=== PATIENT | male | born 1945 | race African-American/Black ===

== ENCOUNTER 2016-12-28 11:21 | Inpatient (IN) | payer MEDICARE, OTHER ==
[2016-12-28] VITALS (8 sets, daily range): BP systolic 69–133; BP diastolic 28–105
[~2016-12-28] VITALS: Ht 182.9 cm; Wt 72.6 kg
[2016-12-28] MEDS ORDERED: NS 1000ml 2,200 ML IVLG ONE (11:30)
--- NOTE | 2016-12-28 11:30 | Emergency Room Report ---
History of Present Illness General Chief Complaint: Dizziness Source: Patient, EMS Present Illness HPI Patient was brought in by paramedics Appears extremely ill Tachypneic Patient was apparently found down With questionable severe dizziness and lightheadedness Patient was able to tell me that he was feeling lightheaded prior to the arrival of the paramedics However with multiple attempts a further history Patient is essentially found to be tachypneic And severely ill with minimal ability to provide information He does have a palpable pacemaker in the left upper chest Is not able to provide any information regarding the onset Regarding medications History of present illness remains significantly limited Allergies: Coded Allergies: No Known Allergies (Unverified , 12/28/16) Patient History Limited by: medical condition Past Medical History: see triage record Pertinent Family History: none Reviewed Nursing Documentation: PMH: Agreed, PSxH: Agreed Nursing Documentation-PMH Hx Cardiac Problems: Yes - a-fib,chf Hx Hypertension: Yes Hx Pacemaker: No Hx Asthma: No Hx COPD: Yes Hx Diabetes: No Hx Cancer: No Hx Gastrointestinal Problems: No Hx Dialysis: No History Of Psychiatric Problem: No Hx Neurological Problems: No Hx Cerebrovascular Accident: No Hx Seizures: No Review of Systems All Other Systems: limited - Other than the ones mentioned in the history of present illness all others are reviewed however they do stay limited due to the patient's mental status Physical Exam Vital Signs Date Time Temp Pulse Resp B/P Pulse Ox O2 Delivery O2 Flow Rate FiO2 12/28/16 11:09 98.1 86 16 130/70 98 Room Air Sp02 EP Interpretation: reviewed, normal General Appearance: severe distress - Patient appears tachypneic and diaphoretic Head: normocephalic, atraumatic Eyes: bilateral eye EOMI, bilateral eye PERRL ENT: hearing grossly normal, normal pharynx, TMs + canals normal, uvula midline Neck: full range of motion, supple, no meningismus, no bony tend Respiratory: no retraction, no accessory muscle use, other - Rhonchi in both upper lobes, tachypneic Cardiovascular #1: normal peripheral pulses, regular rate, rhythm, no gallop Gastrointestinal: normal bowel sounds, non tender, soft, no mass, no organomegaly, non-distended, no guarding, no hernia, no pulsatile mass, no rebound Genitourinary: no CVA tenderness Musculoskeletal: other - Patient not following all commands fully at this time however there is no obvious signs of focal deficit, Neurologic: oriented x3, responsive, student services dean III-XII nml as tested, motor strength/ tone normal, sensory intact Psychiatric: mood/affect normal Skin: warm/dry, palpation normal, other - Edema in both lower extremities Lymphatic: normal inspection, no adenopathy Procedures Critical Care Time Critical Care Time 40 minutes for initial critical presentation Hypotensive episodes requiring multiple exams Not including any procedural time Medical Decision Making Diagnostic Impression: Primary Impression: Syncope Additional Impressions: Viral syndrome Dehydration ER Course Patient is a fairly complex patient with multiple differential to consideration including but not limited to cardiac cardiopulmonary and vascular emergencies Patient has done significantly better throughout his stay Blood pressure at this time is improving Patient oxygenation also improved At this be to several family members including Mrs. Shelton Patient does not have much other medication other than low dose oral medication for diabetes However he does have a cardiac pacemaker which is in place on exam as well Patient required further inpatient care and admitted in improved yet still critical condition Labs Test 12/28/16 11:30 12/28/16 11:40 12/28/16 12:30 12/28/16 12:44 White Blood Count 13.4 K/UL (4.8-10.8) Red Blood Count 5.37 M/UL (4.70-6.10) Hemoglobin 13.9 G/DL (14.2-18.0) Hematocrit 45.2 % (42.0-52.0) Mean Corpuscular Volume 84 FL (80-99) Mean Corpuscular Hemoglobin 25.9 PG (27.0-31.0) Mean Corpuscular Hemoglobin Concent 30.8 G/DL (32.0-36.0) Red Cell Distribution Width 14.8 % (11.6-14.8) Platelet Count 164 K/UL (150-450) Mean Platelet Volume 9.0 FL (6.5-10.1) Neutrophils (%) (Auto) 53.4 % (45.0-75.0) Lymphocytes (%) (Auto) 37.4 % (20.0-45.0) Monocytes (%) (Auto) 7.3 % (1.0-10.0) Eosinophils (%) (Auto) 1.5 % (0.0-3.0) Basophils (%) (Auto) 0.4 % (0.0-2.0) Prothrombin Time 11.3 SEC (9.30-11.50) Prothromb Time International Ratio 1.1 (0.9-1.1) Activated Partial Thromboplast Time 24 SEC (23-33) Urine Color Yellow Urine Appearance Clear Urine pH 6 (4.5-8.0) Urine Specific [place] 1.015 (1.005-1.035) Urine Protein 2+ (NEGATIVE) Urine Glucose (UA) Negative (NEGATIVE) Urine Ketones Negative (NEGATIVE) Urine Occult Blood Negative (NEGATIVE) Urine Nitrite Negative (NEGATIVE) Urine Bilirubin Negative (NEGATIVE) Urine Urobilinogen Normal MG/DL (0.0-1.0) Urine Leukocyte Esterase Negative (NEGATIVE) Urine RBC 0-2 /HPF (0 - 0) Urine WBC 0-2 /HPF (0 - 0) Urine Squamous Epithelial Cells Occasional /LPF Urine Bacteria Occasional /HPF (NONE) Sodium Level 142 mEQ/L (135-145) Potassium Level 4.0 mEQ/L (3.4-4.9) Chloride Level 98 mEQ/L (98-107) Carbon Dioxide Level 26 mEQ/L (20-30) Anion Gap 18 (5-15) Blood Urea Nitrogen 19 mg/dL (7-23) Creatinine 1.7 mg/dL (0.7-1.2) Estimat Glomerular Filtration Rate 48.5 mL/min (>60) Glucose Level 224 mg/dL (74-106) Calcium Level 9.3 mg/dL (8.6-10.2) Phosphorus Level 3.8 mg/dL (2.5-4.8) Magnesium Level 2.1 mg/dL (1.7-2.5) Total Bilirubin 0.5 mg/dL (0.0-1.2) Aspartate Amino Transf (AST/SGOT) 24 U/L (5-40) Alanine Aminotransferase (ALT/SGPT) 27 U/L (3-41) Alkaline Phosphatase 63 U/L (40-129) Total Creatine Kinase 161 U/L (38-174) Creatine Kinase MB 3.3 ng/mL (< 6.7) Creatine Kinase MB Relative Index 2.0 Troponin I < 0.30 ng/mL (<=0.30) Pro-B-Type Natriuretic Peptide 49 pg/mL (0-125) Total Protein 6.8 g/dL (6.6-8.7) Albumin 4.0 g/dL (3.5-5.2) Globulin 2.8 g/dL Albumin/Globulin Ratio 1.4 (1.0-2.7) Lipase 31 U/L (< 60) Lactic Acid Level 3.80 mmol/L (0.66-2.22) Arterial Blood pH 7.371 (7.350-7.450) Arterial Blood Partial Pressure CO2 38.8 mmHg (35.0-45.0) Arterial Blood Partial Pressure O2 165.0 mmHg (75.0-100.0) Arterial Blood HCO3 22.0 mmol/L (22.0-26.0) Arterial Blood Oxygen Saturation 98.0 % (92.0-98.0) Arterial Blood Base Excess -2.9 Marquez Test Positive EKG Diagnostic Results Rate: normal Rhythm: NSR, other ST Segments: other - Bifascicular block, nonspecific ST and T-wave changes, abnormal EKG Rhythm Strip Diag. Results EP Interpretation: yes Rate: 66 Rhythm: NSR, no PVC's, no ectopy, other - rbbb Chest X-Ray Diagnostic Results EP Interpretation: Yes Findings: no consolidation, no effusion, no pneumothorax Number of Views: 1 Last Vital Signs Date Time Temp Pulse Resp B/P Pulse Ox O2 Delivery O2 Flow Rate FiO2 12/28/16 11:09 98.1 86 16 130/70 98 Room Air Status: improved Disposition: ADMITTED INPATIENT Condition: Serious DOMENIC SHEN D.O. Dec 28, 2016 11:30
[2016-12-28 11:38] LABS: APPEARANCE,URINE CLEAR; KETONES,URINE NEGATIVE (NEGATIVE); LEUKOCYTE ESTERASE ,URINE NEGATIVE (NEGATIVE); NITRITE,URINE NEGATIVE (NEGATIVE); PH,URINE 6 (4.5-8.0); PROTEIN,URINE 2+ (NEGATIVE); UROBILINOGEN,URINE NORMAL MG/DL (0.0-1.0)
[2016-12-28 11:39] LABS: BASOPHILS % (AUTO) 0.4 % (0.0-2.0); EOSINOPHILS % (AUTO) 1.5 % (0.0-3.0); LYMPHOCYTES % (AUTO) 37.4 % (20.0-45.0); MEAN CORPUSCULAR HEMOGLOBIN 25.9 PG (27.0-31.0); MEAN CORPUSCULAR HGB CONC 30.8 G/DL (32.0-36.0); MEAN CORPUSCULAR VOLUME 84 FL (80-99); MONOCYTES % (AUTO) 7.3 % (1.0-10.0); NEUTROPHILS % (AUTO) 53.4 % (45.0-75.0); PLATELET COUNT 164 K/UL (150-450); RED BLOOD COUNT 5.37 M/UL (4.70-6.10); RED CELL DISTRIBUTION WIDTH 14.8 % (11.6-14.8); WHITE BLOOD COUNT 13.4 K/UL (4.8-10.8)
[2016-12-28 11:46] LABS: INR 1.1 (0.9-1.1); PROTHROMBIN TIME 11.3 SEC (9.30-11.50)
[2016-12-28 11:52] LABS: TROPONIN I < 0.30 ng/mL (<=0.30)
[2016-12-28 11:55] LABS: ALBUMIN/GLOBULIN RATIO 1.4 (1.0-2.7); CALCIUM 9.3 mg/dL (8.6-10.2); CREATININE 1.7 mg/dL (0.7-1.2); GLOMERULAR FILTRATION RATE 48.5 mL/min (>60); MAGNESIUM 2.1 mg/dL (1.7-2.5); PHOSPHORUS 3.8 mg/dL (2.5-4.8); TOTAL PROTEIN 6.8 g/dL (6.6-8.7)
[2016-12-28 11:56] LABS: BACTERIA,URINE OCCASIONAL /HPF; RBC,URINE 0-2 /HPF (0 - 0); SQUAMOUS EPITHELIAL CELL,UR OCCASIONAL /LPF (NONE/OCC); WBC,URINE 0-2 /HPF (0 - 0)
[2016-12-28 11:59] LABS: REFLEX LACTIC ACID YES OR NO YES
[2016-12-28 12:06] LABS: CKMB 3.3 ng/mL (< 6.7)
[2016-12-28] MEDS ORDERED: Oseltamivir 75mg cap ORAL ONE (12:30)
--- NOTE | 2016-12-28 12:30 | Diagnostic Imaging Report ---
Clinical history: Cough. Technique: Portable AP chest radiograph was obtained. Comparison: None Findings: Lung volumes are low with probable basilar atelectasis and vascular crowding. Nonspecific atelectatic device projects over the left chest. There is no pneumonia or pulmonary edema. There is no pleural effusion or pneumothorax. The cardiac and mediastinal silhouettes are normal in appearance. The bony thorax is unremarkable. Impression: Low lung volumes with mild basilar atelectasis and vascular crowding.
[2016-12-28 12:44] LABS: ABG BASE EXCESS -2.9; ABG PCO2 38.8 mmHg (35.0-45.0)
[2016-12-28 12:45] LABS: ABG ALLEN TEST POSITIVE
[2016-12-28] MEDS ORDERED: DIOVAN40 MG ORAL (14:11)
[2016-12-28] MEDS ORDERED: SINGULAIR10 MG ORAL (14:11)
[2016-12-28] MEDS ORDERED: ADVAIR 100-501 EACH INH (14:11)
[2016-12-28] MEDS ORDERED: LISINOPRIL5 MG ORAL (14:11)
[2016-12-28] MEDS ORDERED: Advair 100/50 Inhaler - 14 dose INH SCH (16:30)
[2016-12-28] MEDS ORDERED: DuoNeb 0.5-3(2.5)mg/3ml neb HHN PRN (16:30)
[2016-12-28] MEDS ORDERED: Milk of Magnesia 30ml Ud ORAL PRN (16:30)
[2016-12-28] MEDS: cefTRIAXone 1gm/D5W 55ml IVPB SCH ×2 (17:42)
[2016-12-28] MEDS: Solu-MEDROL 40mg Inj IVP SCH (17:43)
[2016-12-28] MEDS ORDERED: Heparin 5000 units/ml inj SUBQ SCH (21:00)
[2016-12-28] MEDS: Advair 100/50 Inhaler - 14 dose INH SCH (22:25)
[2016-12-29] VITALS: BP 126/73
[2016-12-29] MEDS: Solu-MEDROL 40mg Inj IVP SCH ×2 (00:14→06:38)
--- NOTE | 2016-12-29 03:19 | Consultation ---
DATE OF CONSULTATION: 12/28/2016 CARDIOLOGY CONSULTATION REQUESTING PHYSICIAN: Maxwell Sarah M.D. REASON FOR CONSULTATION: Syncope in the setting of permanent pacemaker. HISTORY OF PRESENT ILLNESS: This 71-year-old male was brought into the emergency room by paramedics after being found down. He notes dizziness and lightheadedness prior to passing out. He is not able to give much more reliable history at this time and is quite lethargic. PAST MEDICAL HISTORY: Includes permanent pacemaker, hypertension, atrial fibrillation, and congestive heart failure. MEDICATIONS: Reviewed and reconciled, although definitive list from home not available. ALLERGIES: None known. SOCIAL HISTORY: Denies smoking or alcohol use. REVIEW OF SYSTEMS: At this time, cannot be reliably obtained from the patient due to his condition. PHYSICAL EXAMINATION: GENERAL: He is in moderate respiratory distress. He is diaphoretic. VITAL SIGNS: In the emergency room, afebrile, blood pressure 130/70, pulse 86, respirations 16, and room air oxygen saturation 98%. HEENT: The oropharynx reveals dry mucous membranes. Pupils are equal, round, and reactive to light and accommodation. LUNGS: Bilateral breath sounds. Scattered rhonchi. Accessory muscle use. HEART: Regular rhythm and rate. Normal S1 and S2. No murmur. ABDOMEN: Soft and nontender. EXTREMITIES: Without edema. Capillary refill is adequate. LABORATORY AND DIAGNOSTIC DATA: EKG reveals sinus rhythm with right bundle and left anterior and superior hemiblocks. White count 13.4 and hemoglobin 13.9. INR 1.1. Magnesium 2.1. Sodium 142, potassium 4.0, bicarbonate 26, BUN 19, creatinine 1.7, and glucose 224. Chest x-ray with atelectasis. IMPRESSION: 1. Probable sepsis. 2. Probable pneumonia. 3. Acute respiratory insufficiency. 4. 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 5. Hypovolemic, syncope suspected. 6. Acute renal failure due to hypovolemia and acute tubular necrosis. PLAN: 1. Cardiac monitoring. 2. Volume resuscitation. 3. Panculture. 4. Broad-spectrum antibiotics. 5. Bronchodilators. 6. DVT prophylaxis. 7. We will continue efforts to expand database. 8. Further recommendations will follow. Noel Norris M.D. DR: Melanie JOB#: [id number] CC:
[2016-12-29 04:00] VITALS: BP 125/80
[2016-12-29 05:24] LABS: MEAN CORPUSCULAR HEMOGLOBIN 26.6 PG (27.0-31.0); MEAN CORPUSCULAR HGB CONC 32.2 G/DL (32.0-36.0); MEAN CORPUSCULAR VOLUME 83 FL (80-99); MEAN PLATELET VOLUME 8.7 FL (6.5-10.1); PLATELET COUNT 114 K/UL (150-450); RED BLOOD COUNT 5.03 M/UL (4.70-6.10); RED CELL DISTRIBUTION WIDTH 14.6 % (11.6-14.8); WHITE BLOOD COUNT 9.2 K/UL (4.8-10.8)
[2016-12-29 06:31] LABS: TROPONIN I 1.43 ng/mL (<=0.30)
[2016-12-29 06:59] LABS: ALANINE AMINOTRANSFERASE 35 U/L (3-41); ALBUMIN/GLOBULIN RATIO 1.2 (1.0-2.7); ANION GAP 16 (5-15); ASPARTATE AMINO TRANSFERASE 30 U/L (5-40); CALCIUM 8.8 mg/dL (8.6-10.2); CARBON DIOXIDE 23 mEQ/L (20-30); CHLORIDE 101 mEQ/L (98-107); CREATININE 1.1 mg/dL (0.7-1.2); GLOMERULAR FILTRATION RATE > 60 mL/min (>60); HEMOLYSIS 6; POTASSIUM 4.8 mEQ/L (3.4-4.9); SODIUM 140 mEQ/L (135-145); TOTAL PROTEIN 6.4 g/dL (6.6-8.7)
[2016-12-29 07:01] LABS: THYROID STIMULATING HORMONE 0.219 uIU/mL (0.300-4.500)
[2016-12-29 08:00] VITALS: BP 151/89
[2016-12-29] MEDS: Nitroglycerin 2% oint pkt TOPIC SCH ×3 (08:07→18:17)
[2016-12-29] MEDS ORDERED: Enoxaparin 80mg Inj SUBQ SCH (09:00)
[2016-12-29] MEDS: Aspirin Baby 81mg ORAL SCH (09:32)
[2016-12-29] MEDS: Advair 100/50 Inhaler - 14 dose INH SCH ×2 (09:32→21:00)
[2016-12-29] MEDS: Losartan 25mg tab ORAL SCH (09:33)
[2016-12-29] MEDS: Montelukast 10mg tablet ORAL SCH (09:35)
[2016-12-29 09:37] LABS: CHOLESTEROL/HDL RATIO 3.7 (3.3-4.4)
[2016-12-29 10:31] LABS: BAND NEUTROPHILS % (MANUAL) 0 % (0-8); BASOPHILS % (MANUAL) 0 % (0-2); EOSINOPHILS % (MANUAL) 0 % (0-3); LYMPHOCYTES % (MANUAL) 5 % (20-45); NEUTROPHILS % (MANUAL) 94 % (45-75); PLATELET ESTIMATE DECREASED; TOTAL CELLS COUNTED 100
[2016-12-29 10:32] LABS: PLATELET MORPHOLOGY NORMAL
[2016-12-29 12:00] VITALS: BP 117/77
--- NOTE | 2016-12-29 12:07 | Cardiology Report ---
APPROVED REPORT EXAM: Two-dimensional and M-mode echocardiogram with Doppler and color Doppler. INDICATION Syncope M-Mode DIMENSIONS IVSd1.3 (0.7-1.1cm)Left Atrium (MM)4.0 (1.6-4.0cm) LVDd4.0 (3.5-5.6cm)Aortic Root2.7 (2.0-3.7cm) PWd1.2 (0.7-1.1cm)Aortic Cusp Exc.2.0 (1.5-2.0cm) IVSs2.0 cm LVDs1.8 (2.5-4.0cm) PWs1.7 cm Normal left ventricular chamber size, systolic function and wall motion. Left ventricular ejection fraction estimated to be 65-70 %. Mild left ventricular hypertrophy. No evidence of pericardial fat or effusion. Moderate right atrial enlargement. Mild right ventricular enlargement. Left atrial chamber size is within normal limits. Mild focal aortic valve sclerosis with adequate cusp excursion. Mildly thickened mitral valve leaflets with normal excursion. Mild mitral annulus and aortic root calcification. Pulmonic valve not well visualized. Normal tricuspid valve structure. IVC dilated at 2.5 cm with physiologic collapse. A color flow and spectral Doppler study was performed and revealed: No aortic regurgitation. Trace mitral regurgitation. Mitral diastolic velocities suggest reduced left ventricular relaxation (Grade I). Mild tricuspid regurgitation. Tricuspid systolic velocities suggests peak right ventricular systolic pressure of 60 mmHg, consistent with severe pulmonary hypertension. No pulmonic regurgitation present.
--- NOTE | 2016-12-29 12:24 | Cardiology Report ---
APPROVED REPORT EKG Measurement Heart [id number] Sinus rhythm with sinus arrhythmia with occasional premature ventricular complexes Right bundle branch block Left anterior fascicular block Bifascicular block Abnormal ECG
[2016-12-29 13:09] LABS: TROPONIN I 0.96 ng/mL (<=0.30)
[2016-12-29] MEDS ORDERED: Tubing IV Secondary IV ONE (14:22)
[2016-12-29 16:00] VITALS: BP 115/69
--- NOTE | 2016-12-29 16:02 | Diagnostic Imaging Report ---
Indications: SOB Technique: IV administration 4.9 mCi 99m technetium macroaggregated albumin. Images obtained over the lungs in multiple projections. Previously, patient inhaled mCi aerosolized 99M technetium DTPA. Images obtained over the lungs in multiple projections Comparison: Chest radiographs dated 12/28/2016 Findings: Tracer activity in the right lung is overall slightly fainter on the perfusion than on the aerosol images, but no focal segmental or subsegmental perfusion defects are demonstrated; suspect this is artifactual. No definite aerosol/perfusion mismatch is evident. Impression: Findings are deemed low probability for pulmonary embolus
[2016-12-29] MEDS ORDERED: Promethazine/Codeine 5ml UD ORAL PRN (17:30)
[2016-12-29] MEDS: cefTRIAXone 1gm/D5W 55ml IVPB SCH ×2 (18:17)
--- NOTE | 2016-12-29 19:09 | History and Physical Report ---
DATE OF ADMISSION: 12/28/2016 CHIEF COMPLAINT: Syncope. HISTORY OF PRESENT ILLNESS: The patient is a 71-year-old male with multiple medical problems, who presented with a complaint of a syncopal episode. According to the patient, he was well. He woke up in the morning of admission, walked up some stairs. He noted slight amount of chest tightness and then had a syncopal episode. Walking down to his car, he also felt unsteady, weak, and dizzy and passed out again. He has been having diarrhea for the last two days, approximately five times a day and has had "flu" for two weeks with productive cough and sore throat. On evaluation in the emergency room, the patient was short of breath. He was temporarily placed on BiPAP. He is now off BiPAP and is more comfortable. He does admit to recent episodes of exertional chest pain. He states he has all his doctors at the [place] who apparently did a stress test that was unremarkable. PAST MEDICAL HISTORY: Significant for history of asthma, hypertension, hyperlipidemia, and history of gout. PAST SURGICAL HISTORY: Some type of heart monitor. CURRENT MEDICATIONS: Reconciled and reviewed. ALLERGIES: None. FAMILY HISTORY: Significant for diabetes. SOCIAL HISTORY: Negative for tobacco, ethanol, or drugs. REVIEW OF SYSTEMS: General: No fever or chills. Positive malaise and weakness. HEENT: No headaches or visual changes. Cardiopulmonary: Positive chest pains. Positive shortness of breath. Positive cough. Gastrointestinal: No nausea or vomiting. Genitourinary: No urgency or frequency. Musculoskeletal: No joint pain or swelling. Neurological: No evidence of seizures. PHYSICAL EXAMINATION: VITAL SIGNS: Temperature 98 degrees, blood pressure 126/73, pulse of 88, and respirations 20. GENERAL: The patient is in no apparent stress. HEART: Regular rate and rhythm. LUNGS: Clear anteriorly. ABDOMEN: Soft, nontender, and nondistended. EXTREMITIES: Without clubbing or cyanosis. There is trace pitting edema noted. LABORATORY DATA: Sodium 142, potassium 4, and creatinine was 1.7. White count 13, hemoglobin 13, hematocrit 45, and platelets of 164,000. Urine was clear. EKG showed right bundle-branch block and left anterior fascicular block. There are no comparisons. ASSESSMENT: This is a pleasant male who complains of syncopal episode. 1. Syncope. 2. Acute myocardial infarction. 3. Asthma. 4. Hypertension. 5. Hyperlipidemia. 6. History of gout. PLAN: 1. Antiplatelet therapy and Lovenox. 2. Topical nitrates. 3. Respiratory treatments as needed. 4. Cardiology consultation. 5. Antibiotics for bronchitis. 6. The patient will likely need to be transferred for cardiac catheterization with followup echo. 7. The patient's status is guarded. Maxwell Sraah M.D. DR: ALEXANDRA JOB#: [id number] CC:
[2016-12-29 20:00] VITALS: BP 116/70
[2016-12-29] MEDS: Enoxaparin 80mg Inj SUBQ SCH (21:01)
[2016-12-30] VITALS: BP 121/77
[2016-12-30] MEDS: Nitroglycerin 2% oint pkt TOPIC SCH ×4 (00:32→17:29)
[2016-12-30] MEDS: Metoprolol 25mg tab ORAL SCH ×2 (01:11→08:52)
--- NOTE | 2016-12-30 02:49 | Progress Note ---
DATE: 12/29/2016 CARDIOLOGY PROGRESS NOTE SUBJECTIVE: The patient has no chest pain. He is still short of breath. Monitored rhythm is sinus with bundle-branch block. His troponin levels have been elevated. OBJECTIVE: VITAL SIGNS: Blood pressure 115/69, pulse 88, respirations 18. NECK: Supple. LUNGS: With diminished breath sounds. Few rales. HEART: Regular rhythm and rate. Normal S1, increased splitting S2, a 1/6 systolic apical murmur. ABDOMEN: Soft. EXTREMITIES: Trace edema. DIAGNOSTIC DATA: Echocardiogram with normal ejection fraction and pulmonary hypertension. PA systolic pressure of 60, mild tricuspid regurgitation. VQ scan is normal. LDL cholesterol was 150. Troponin peaked at 1.43. IMPRESSION: 1. Acute myocardial infarction. 2. Hyperlipidemia. 3. Permanent pacemaker. 4. Bifascicular block. 5. Hypertensive heart disease. 6. Acute diastolic congestive heart failure. 7. Severe pulmonary hypertension. PLAN: 1. Add beta-pj. 2. Continue anti-platelet therapy. 3. DVT prophylaxis. 4. Statin drug. 5. Anti failure regimen and possibly diuresis. 6. Pacemaker interrogation. 7. Ischemia workup. 8. We will follow. 9. I am attempting to obtain outside records. Noel Norris M.D. DR: DAE JOB#: [id number] CC:
[2016-12-30 04:00] VITALS: BP 137/77
[2016-12-30 05:50] LABS: BASOPHILS % (AUTO) 0.2 % (0.0-2.0); LYMPHOCYTES % (AUTO) 16.3 % (20.0-45.0); MEAN CORPUSCULAR HEMOGLOBIN 26.8 PG (27.0-31.0); MEAN CORPUSCULAR HGB CONC 31.6 G/DL (32.0-36.0); MEAN CORPUSCULAR VOLUME 85 FL (80-99); MEAN PLATELET VOLUME 8.6 FL (6.5-10.1); MONOCYTES % (AUTO) 6.9 % (1.0-10.0); NEUTROPHILS % (AUTO) 76.6 % (45.0-75.0); PLATELET COUNT 106 K/UL (150-450); RED BLOOD COUNT 4.61 M/UL (4.70-6.10); RED CELL DISTRIBUTION WIDTH 14.3 % (11.6-14.8); WHITE BLOOD COUNT 13.9 K/UL (4.8-10.8)
[2016-12-30 06:23] LABS: ALANINE AMINOTRANSFERASE 25 U/L (3-41); ALBUMIN/GLOBULIN RATIO 1.2 (1.0-2.7); ANION GAP 13 (5-15); ASPARTATE AMINO TRANSFERASE 24 U/L (5-40); CALCIUM 8.8 mg/dL (8.6-10.2); CARBON DIOXIDE 23 mEQ/L (20-30); CHLORIDE 104 mEQ/L (98-107); CREATININE 1.1 mg/dL (0.7-1.2); GLOMERULAR FILTRATION RATE > 60 mL/min (>60); HEMOLYSIS 6; POTASSIUM 4.4 mEQ/L (3.4-4.9); SODIUM 140 mEQ/L (135-145); TOTAL PROTEIN 5.7 g/dL (6.6-8.7)
[2016-12-30 06:56] LABS: TROPONIN I 1.01 ng/mL (<=0.30)
--- NOTE | 2016-12-30 07:07 | General Progress Note ---
Assessment/Plan Problem List: (1) Acute SC ICD Codes: I21.3 - ST elevation (STEMI) myocardial infarction of unspecified site SNOMED: 95122783 (2) DVT (deep venous thrombosis) ICD Codes: I82.409 - Acute embolism and thrombosis of unspecified deep veins of unspecified lower extremity SNOMED: 201009609 (3) Syncope ICD Codes: R55 - Syncope and collapse SNOMED: 780485043 (4) Viral syndrome ICD Codes: B34.9 - Viral infection, unspecified SNOMED: 27479745 Status: stable Assessment/Plan cont antiplt rx and lovenox topical nitrates b-blockade abx resp care o2 possible transfer for cath Subjective ROS Limited/Unobtainable: No Constitutional: Reports: malaise, weakness HEENT: Reports: no symptoms Cardiovascular: Reports: chest pain Respiratory: Reports: shortness of breath Gastrointestinal/Abdominal: Reports: no symptoms Genitourinary: Reports: no symptoms Neurologic/Psychiatric: Reports: no symptoms Endocrine: Reports: no symptoms Hematologic/Lymphatic: Reports: no symptoms Allergies: Coded Allergies: No Known Allergies (Unverified , 12/28/16) All Systems: reviewed and negative except above Subjective intermittent chest pain o2 sats better. less sob. venous duplex positive for acute dvt. on lovenox bid. . Objective Last 24 Hour Vital Signs Date Time Temp Pulse Resp B/P Pulse Ox O2 Delivery O2 Flow Rate FiO2 12/30/16 05:58 128/45 12/30/16 04:00 98.0 55 20 137/77 97 Room Air 12/30/16 03:50 49 12/30/16 01:11 69 139/90 12/30/16 00:32 121/77 12/30/16 00:11 64 12/30/16 00:00 98.0 56 20 121/77 94 Room Air 12/29/16 21:30 80 20 97 Room Air 3.0 21 12/29/16 21:30 77 20 95 Room Air 21 12/29/16 20:00 84 12/29/16 20:00 98.2 80 18 116/70 95 Room Air 18 12/29/16 19:30 Nasal Cannula 3.0 32 12/29/16 19:30 80 20 Nasal Cannula 3.0 32 12/29/16 19:30 98 Nasal Cannula 3.0 32 12/29/16 18:17 115/69 12/29/16 16:00 88 12/29/16 16:00 97.3 80 18 115/69 95 Room Air 18 12/29/16 12:23 145/91 12/29/16 12:00 97.5 83 20 117/77 93 Nasal Cannula 3.0 12/29/16 09:47 78 18 97 Nasal Cannula 3.0 12/29/16 09:46 78 18 97 Nasal Cannula 3.0 12/29/16 09:46 Nasal Cannula 3.0 12/29/16 09:46 97 Nasal Cannula 3.0 12/29/16 09:45 78 18 Nasal Cannula 3.0 12/29/16 09:33 145/91 12/29/16 09:00 84 85 91 12/29/16 08:07 125/80 12/29/16 08:00 94 12/29/16 08:00 97.7 94 20 151/89 93 Nasal Cannula 3.0 Intake and Output 12/29/16 12/30/16 19:00 07:00 Intake Total 880 ml 975 ml Output Total 300 ml 1650 ml Balance 580 ml -675 ml Intake Oral 300 ml IV Total 880 ml 675 ml Output Urine Total 300 ml 1650 ml # Bowel Movements 1 Laboratory Tests 12/29/16 07:50: Triglycerides Level 70, Cholesterol Level 225H, LDL Cholesterol 150H, HDL Cholesterol 61H, Cholesterol/HDL Ratio 3.7 12/29/16 12:15: Troponin I 0.96*H 12/30/16 04:10: Troponin I 1.01*H, White Blood Count 13.9#H, Red Blood Count 4.61L, Hemoglobin 12.3L, Hematocrit 39.0L, Mean Corpuscular Volume 85, Mean Corpuscular Hemoglobin 26.8L, Mean Corpuscular Hemoglobin Concent 31.6L, Red Cell Distribution Width 14.3, Platelet Count 106L, Mean Platelet Volume 8.6, Neutrophils (%) (Auto) 76.6H, Lymphocytes (%) (Auto) 16.3L, Monocytes (%) (Auto ) 6.9, Eosinophils (%) (Auto) 0.0, Basophils (%) (Auto) 0.2, Sodium Level 140, Potassium Level 4.4, Chloride Level 104, Carbon Dioxide Level 23, Anion Gap 13, Blood Urea Nitrogen 14, Creatinine 1.1, Estimat Glomerular Filtration Rate > 60 , Glucose Level 147H, Hemoglobin A1c 6.3H, Calcium Level 8.8, Total Bilirubin 0.3, Aspartate Amino Transf (AST/SGOT) 24, Alanine Aminotransferase (ALT/SGPT) 25, Alkaline Phosphatase 57, Pro-B-Type Natriuretic Peptide 2191H, Total Protein 5.7L, Albumin 3.2L, Globulin 2.5, Albumin/Globulin Ratio 1.2 Height (Feet): 6 Height (Inches): 0.00 Weight (Pounds): 160 General Appearance: WD/WN, alert Neck: supple Cardiovascular: regular rhythm Respiratory/Chest: lungs clear Abdomen: normal bowel sounds, non tender, soft, no organomegaly, no mass Edema: no edema noted Arm (L), no edema noted Arm (R), no edema noted Leg (L), no edema noted Leg (R), no edema noted Pedal (L), no edema noted Pedal (R), no edema noted Generalized SHELLEY MIGUEL Dec 30, 2016 07:07
--- NOTE | 2016-12-30 07:56 | Pulmonology Progress Note ---
Assessment/Plan Assessment/Plan 1. Syncope. 2. Acute myocardial infarction. 3. Asthma. 4. Hypertension. 5. Hyperlipidemia. 6. History of gout. 7. minimal atelectasis PLAN care noted on high dose Lovenox no change cards clearance VQ low prob will follow up for change respiratory care as outlined impression, plan, and exam edited and reviewed in detail care discussed with RN Subjective Allergies: Coded Allergies: No Known Allergies (Unverified , 12/28/16) Subjective care noted no distress at present, no need for oxygen Objective Last 24 Hour Vital Signs Date Time Temp Pulse Resp B/P Pulse Ox O2 Delivery O2 Flow Rate FiO2 12/30/16 07:41 55 20 Room Air 12/30/16 07:40 98 Room Air 12/30/16 07:40 Room Air 12/30/16 05:58 128/45 12/30/16 04:00 98.0 55 20 137/77 97 Room Air 12/30/16 03:50 49 12/30/16 01:11 69 139/90 12/30/16 00:32 121/77 12/30/16 00:11 64 12/30/16 00:00 98.0 56 20 121/77 94 Room Air 12/29/16 21:30 80 20 97 Room Air 3.0 21 12/29/16 21:30 77 20 95 Room Air 21 12/29/16 20:00 84 12/29/16 20:00 98.2 80 18 116/70 95 Room Air 18 12/29/16 19:30 Nasal Cannula 3.0 32 12/29/16 19:30 80 20 Nasal Cannula 3.0 32 12/29/16 19:30 98 Nasal Cannula 3.0 32 12/29/16 18:17 115/69 12/29/16 16:00 88 12/29/16 16:00 97.3 80 18 115/69 95 Room Air 18 12/29/16 12:23 145/91 12/29/16 12:00 97.5 83 20 117/77 93 Nasal Cannula 3.0 12/29/16 09:47 78 18 97 Nasal Cannula 3.0 12/29/16 09:46 78 18 97 Nasal Cannula 3.0 12/29/16 09:46 Nasal Cannula 3.0 12/29/16 09:46 97 Nasal Cannula 3.0 12/29/16 09:45 78 18 Nasal Cannula 3.0 12/29/16 09:33 145/91 12/29/16 09:00 84 85 91 12/29/16 08:07 125/80 12/29/16 08:00 94 12/29/16 08:00 97.7 94 20 151/89 93 Nasal Cannula 3.0 Intake and Output 12/29/16 12/30/16 19:00 07:00 Intake Total 880 ml 1200 ml Output Total 300 ml 1650 ml Balance 580 ml -450 ml Intake Oral 300 ml IV Total 880 ml 900 ml Output Urine Total 300 ml 1650 ml # Bowel Movements 2 Objective GENERAL: The patient is in no apparent stress. HEART: Regular rate and rhythm. without MRG LUNGS: Clear anteriorly and posteriorly without rhonchi or wheeze ABDOMEN: Soft, nontender, and nondistended. No HSM EXTREMITIES: Without clubbing or cyanosis. There is trace pitting edema noted. NEURO: nonfocal, EOMI, adequate gag WDWN male NAD Microbiology Date/Time Source Procedure Growth Status 12/28/16 11:40 Blood Blood Culture - Preliminary NO GROWTH AFTER 24 HOURS Resulted 12/28/16 11:40 Blood Blood Culture - Preliminary NO GROWTH AFTER 24 HOURS Resulted 12/28/16 11:31 Nasal Nares Influenza Types A,B Antigen (GISELA) - Final Complete Laboratory Tests 12/29/16 12:15: Troponin I 0.96*H 12/30/16 04:10: Troponin I 1.01*H, White Blood Count 13.9#H, Red Blood Count 4.61L, Hemoglobin 12.3L, Hematocrit 39.0L, Mean Corpuscular Volume 85, Mean Corpuscular Hemoglobin 26.8L, Mean Corpuscular Hemoglobin Concent 31.6L, Red Cell Distribution Width 14.3, Platelet Count 106L, Mean Platelet Volume 8.6, Neutrophils (%) (Auto) 76.6H, Lymphocytes (%) (Auto) 16.3L, Monocytes (%) (Auto ) 6.9, Eosinophils (%) (Auto) 0.0, Basophils (%) (Auto) 0.2, Sodium Level 140, Potassium Level 4.4, Chloride Level 104, Carbon Dioxide Level 23, Anion Gap 13, Blood Urea Nitrogen 14, Creatinine 1.1, Estimat Glomerular Filtration Rate > 60 , Glucose Level 147H, Hemoglobin A1c 6.3H, Calcium Level 8.8, Total Bilirubin 0.3, Aspartate Amino Transf (AST/SGOT) 24, Alanine Aminotransferase (ALT/SGPT) 25, Alkaline Phosphatase 57, Pro-B-Type Natriuretic Peptide 2191H, Total Protein 5.7L, Albumin 3.2L, Globulin 2.5, Albumin/Globulin Ratio 1.2 Current Medications Medications (Trade) Dose Ordered Sig/Moody Route PRN Reason Start Time Stop Time Status Last Admin Dose Admin Acetaminophen (Tylenol) 650 mg Q4H PRN ORAL Mild Pain/Temp > 100.5 12/28/16 16:30 01/27/17 16:29 Albuterol/ Ipratropium (DuoNeb 0.5-3(2.5)mg/3ml) 3 ml Q4H PRN HHN Shortness of Breath 12/28/16 16:30 01/02/17 16:29 Aspirin (ASA) 81 mg DAILY ORAL 12/29/16 09:00 01/28/17 08:59 12/29/16 09:32 Atorvastatin Calcium (Lipitor) 10 mg BEDTIME ORAL 12/30/16 00:30 01/29/17 00:29 12/30/16 01:11 Atorvastatin Calcium (Lipitor) 20 mg BEDTIME ORAL 12/30/16 21:00 01/29/17 20:59 UNV Ceftriaxone Sodium/Dextrose (Rocephin/D5W) 55 ml @ 110 mls/hr Q24H IVPB 12/28/16 18:00 01/04/17 17:59 12/29/16 18:17 Enoxaparin Sodium (Lovenox) 80 mg EVERY 12 HOURS SUBQ 12/29/16 21:00 01/28/17 20:59 12/29/16 21:01 Losartan Potassium 25 mg 25 mg DAILY ORAL 12/29/16 09:00 01/28/17 08:59 12/29/16 09:33 Magnesium Hydroxide 30 ml 30 ml DAILYPRN PRN ORAL Constipation 12/28/16 16:30 01/27/17 16:29 Metoprolol Tartrate (Lopressor) 25 mg Q12HR ORAL 12/30/16 00:30 01/29/17 00:29 12/30/16 01:11 Montelukast Sodium (Singulair) 10 mg DAILY ORAL 12/29/16 09:00 01/28/17 08:59 12/29/16 09:35 Nitroglycerin (Nitro-Bid) 1 inch EVERY 6 HOURS TOPIC 12/29/16 07:00 01/28/17 06:59 12/30/16 05:58 Ondansetron HCl (Zofran) 4 mg Q6H PRN IVP Nausea & Vomiting 12/28/16 16:30 01/27/17 16:29 Pantoprazole (Protonix) 40 mg DAILY ORAL 12/29/16 09:00 01/28/17 08:59 12/29/16 09:32 Promethazine HCl/ Codeine (Phenergan with Codeine) 5 ml Q4H PRN ORAL For Cough 12/29/16 17:30 01/28/17 17:29 12/29/16 21:01 Salmeterol Xinafoate/ Fluticasone (Advair 100/50 Diskus) 1 puffs EVERY 12 HOURS INH 12/28/16 21:00 01/27/17 20:59 12/29/16 21:00 Sodium Chloride (Sodium Chloride 1000ml bag) 1,000 ml @ 75 mls/hr [id number] IV 12/28/16 16:30 01/27/17 16:29 12/30/16 01:12 Temazepam (Restoril) 7.5 mg HSPRN PRN ORAL Insomnia 12/28/16 16:30 01/04/17 16:29 ISAIAH GOLDMAN Dec 30, 2016 07:56
[2016-12-30 08:00] VITALS: BP 117/75
[2016-12-30] MEDS: Losartan 25mg tab ORAL SCH (08:52)
[2016-12-30] MEDS: Aspirin Baby 81mg ORAL SCH (08:52)
[2016-12-30] MEDS: Montelukast 10mg tablet ORAL SCH (08:53)
[2016-12-30] MEDS: Enoxaparin 80mg Inj SUBQ SCH (08:58)
[2016-12-30] MEDS: Advair 100/50 Inhaler - 14 dose INH SCH (09:10)
[2016-12-30] MEDS ORDERED: Norco 10mg/325mg tab ORAL PRN ×2 (10:45→11:30)
[2016-12-30 12:00] VITALS: BP 129/79
[2016-12-30 16:00] VITALS: BP 126/78
[2016-12-30 17:29] VITALS: BP 126/78
[2016-12-30] MEDS: cefTRIAXone 1gm/D5W 55ml IVPB SCH ×2 (17:32)
[2016-12-30] MEDS ORDERED: Atorvastatin 20mg tab ORAL SCH (21:00)
--- NOTE | 2016-12-31 03:19 | Progress Note ---
DATE: 12/30/2016 CARDIOLOGY PROGRESS NOTE: SUBJECTIVE: The patient has not had any chest pain. Shortness of breath has improved. Monitored rhythm, sinus bradycardia. OBJECTIVE: VITAL SIGNS: Blood pressure 128/45, heart rate 55, respiratory rate 20, and oxygen saturation on room air 97%. NECK: Supple. LUNGS: With few rales. CARDIAC: Regular rhythm rate. Normal S1 and S2. Fourth heart sound. ABDOMEN: Soft. EXTREMITIES: No edema. LABORATORY AND DIAGNOSTIC DATA: Records reviewed. The patient has a event recorder. No pacemaker implant. White count 13.9, hemoglobin 12.3. Pro-natriuretic peptide is 2191. Troponin is 1. IMPRESSION: 1. Acute myocardial infarction, bifascicular heart block. 2. Acute diastolic congestive heart failure. PLAN: Discontinue Lovenox. Continue beta-pj. Continue anti-platelet therapy. Advance anti-failure regimen. I have spoken with the cardiology division at [facility]. The patient will be transferred there for higher level of care and cardiac catheterization. In addition, he will be further evaluated for conduction system disease and event recorder may be removed. Noel Norris M.D. : Arnol JOB#: [id number] CC:
--- NOTE | 2017-01-01 14:06 | Discharge Summary ---
Discharge Summary Hospital Course Date of Admission Dec 28, 2016 at 11:41 Date of Discharge Dec 30, 2016 at 18:50 Admitting Diagnosis respiratory distress, syncope HPI Jose Patricia is a 71 year old male who was admitted on Dec 28, 2016 at 11:41 for Respiratory Distress,Syncope Hospital Course [id number] Discharge Discharge Disposition Patient was discharged to [facility] Discharge Diagnoses: Ashley Adams NP Jan 01, 2017 14:06
--- NOTE | 2017-01-02 01:49 | Discharge Summary 2 SIG ---
DATE OF ADMISSION: 12/28/2016 DATE OF DISCHARGE: 12/30/2016 CONSULTANTS: 1. Noel Norris M.D. 2. Ovidio Mcbride M.D. BRIEF HOSPITAL COURSE: The patient is a 71-year-old male with multiple medical problems, presented with complaints of syncopal episode. He woke up in the morning and had some slight amount of chest tightness and syncopal episode. Walking down to his car, again he felt unsteady, weak, and passed out. He has been having diarrhea for the last two days approximately five times a day and had a flu for two weeks with productive cough and sore throat. On evaluation at the emergency room, the patient was short of breath and was temporarily placed on BiPAP. He was taken off of BiPAP and feels comfortable. He was admitted for cardiac monitoring. EKG showed right bundle-branch block and left anterior fascicular block. Dr. Norris was consulted. The patient has had permanent pacemaker and had evidence of acute renal failure due to hypovolemia and acute tubular necrosis. V/Q scan done was normal. He had elevated troponin. Echocardiogram done showed normal ejection fraction with pulmonary hypertension. He had venous duplex that showed acute DVT of the left leg. He was given beta-pj and was continued on statins and antiplatelet therapy and was given Lovenox. He was eventually transferred to [facility] at [facility] for cardiac catheterization. FINAL DIAGNOSES: 1. Acute non-ST elevated myocardial infarction. 2. Acute deep vein thrombosis of the left leg. 3. Syncope. 4. Viral syndrome. 5. Acute diastolic congestive heart failure. 6. Severe pulmonary hypertension. 7. Permanent pacemaker. 8. Bifascicular block. 9. Hyperlipidemia. 10. Hypertensive heart disease. 11. Acute renal failure secondary to acute tubular necrosis and hypovolemia. 12. Acute respiratory failure requiring BIPAP, resolved. Maxwell Sarah M.D. I have been assigned to dictate discharge summary on this account and I was not involved in the patient's management. Ashley Adams N.P. DR: Gabriel JOB#: [id number] CC: RASHEL
--- NOTE | 2017-01-02 14:29 | Consultation ---
DATE OF CONSULTATION: PULMONARY CONSULTATION REFERRING PHYSICIAN: Maxwell Sarah M.D. REASON FOR CONSULTATION: Respiratory insufficiency. HISTORY OF PRESENT ILLNESS: The patient is a 71-year-old male brought into the emergency room after he was found down by paramedics. The patient noted to have dizziness and lightheadedness. The patient unable to give much history. The patient was admitted for sepsis and pneumonia. I was called to assist to evaluate further and recommend. The patient is a fair historian at this time, but difficult to fully assess. The patient also noted to have underlying history of COPD. The patient's findings discussed with the patient's primary care doctor as well as the nursing staff. The patient is currently on nasal cannula without significant distress, previously on BiPAP, currently off. No cough or sputum. PAST MEDICAL HISTORY: Notable for permanent pacemaker, hypertension, atrial fibrillation, CHF, COPD. MEDICATIONS: Reviewed. ALLERGIES: None noted. SOCIAL HISTORY: Nonsmoker and nondrinker. The patient is retired at present. REVIEW OF SYSTEMS: Difficulty to obtain at present due to the patient's mental status. PHYSICAL EXAMINATION: GENERAL: This is a well-developed male, comfortable, without significant distress VITAL SIGNS: Blood pressure 155/91, pulse 78, oxygen saturation 97% on 3 liters, afebrile 98.2 degrees. HEENT: Fairly negative. Extraocular movements are grossly intact. NECK: Supple. The patient has mild jugular venous distention. LUNGS: Decreased breath sounds. Minimal rhonchi and minimal wheezes. CARDIAC: S1 and S2. Regularly rhythm without murmurs, rubs, or gallops. The patient has a pacemaker to the chest wall. ABDOMEN: Soft, nontender, and nondistended. Normal bowel sounds. No hepatosplenomegaly. EXTREMITIES: No cyanosis. No clubbing. Mild edema. NEUROLOGICAL: Grossly nonfocal. LABORATORY AND DIAGNOSTIC DATA: White count is 9.2, hematocrit 31, and platelets of 114,000. Chemistry, BUN 14 and creatinine 1.1. Troponin 1.02. Lipid panel with elevated cholesterol. ABG, pH 7.37; remainder reviewed. Chest x-ray revealed some atelectasis and pulmonary vascular crowding. IMPRESSION: 1. Respiratory insufficiency. 2. Mild hypoxemia. 3. Chronic obstructive pulmonary disease. 4. Possible pneumonia. 5. Atelectasis. 6. History of congestive heart failure. 7. Syncope, possibly hypovolemic in nature. 8. Hyperglycemia, probably diabetes. 9. Chronic renal failure. 10. Leukocytosis. RECOMMENDATIONS: medications reviewed. The patient is currently on respiratory care, which seems to be adequate. Patient is on full dose Lovenox. Nebulized therapy. IV antibiotics empirically. Monitor clinically for further changes in intervention. Monitor cardiac status. Followup troponin. monitor fluid balance. will follow up closely and recommend further Ovidio Mcbride M.D. DR: Celestino JOB#: [id number] CC: RASHEL
--- NOTE | 2017-01-02 21:48 | Diagnostic Imaging Report ---
APPROVED REPORT CPT Code: 99345 Present Symptoms Shortness of breath LEFT LEG: Venous imaging reveals acute thrombus in the common femoral, popliteal and calf veins. The greater saphenous vein is within normal limits. RIGHT LEG: Venous imaging reveals a patent deep venous system. There is no evidence of thrombus within the femoral, popliteal or tibial segments. The greater saphenous vein is also within normal limits. Doppler indicates normal spontaneous flow within these segments. NALDO Valderrama was notified of abnormal results at 1430
--- NOTE | 2017-01-02 21:49 | Diagnostic Imaging Report ---
APPROVED REPORT CPT Code: 60712 Vascular Symptoms Syncope CAROTID (BILATERAL) - Imaging reveals no significant plaque within the right and left extracranial carotid arteries. The Doppler spectral flow analysis is within normal limits throughout the extracranial carotid arteries bilaterally. VERTEBRAL- The vertebral arteries are within normal limits.
== END 2016-12-30 18:50 | DRG 280 ==
LOC: EDBD 11:21 → EMR 11:39 → 2W 11:41 → EDBEDREQ 12:10 → 2W 16:19
PROC: 5A09357 Assistance with Respiratory Ventilation, Less than 24 Consecutive Hours, Continuous Positive Airway Pressure (ICD-10-PCS; principal; 2016-12-28)
DX: I21.4 Non-ST elevation (NSTEMI) myocardial infarction (principal); N17.0 Acute kidney failure with tubular necrosis; J96.01 Acute respiratory failure with hypoxia; I50.31 Acute diastolic (congestive) heart failure; I82.412 Acute embolism and thrombosis of left femoral vein; I45.2 Bifascicular block; I82.432 Acute embolism and thrombosis of left popliteal vein; E78.5 Hyperlipidemia, unspecified; M10.9 Gout, unspecified; E86.1 Hypovolemia; I27.2 Other secondary pulmonary hypertension; R00.1 Bradycardia, unspecified; I11.0 Hypertensive heart disease with heart failure; J45.909 Unspecified asthma, uncomplicated; Z95.0 Presence of cardiac pacemaker; B34.9 Viral infection, unspecified; R55 Syncope and collapse
CPT/HCPCS: 36415; 36600; 71010; 78579; 78580; 80053; 80061; 81003; 82550; 82553; 82803; 83036; 83605; 83690; 83735; 83880; 84100; 84443; 84484; 85007; 85025; 85610; 85730; 86710; 87040; 93005; 93306; 93880; 93970; 94640; 94660; 94664; 94760; A9503